=== PATIENT | female | born 1930 | race Caucasian/White ===

== ENCOUNTER → 2016-06-20 | Outpatient (CLI) | payer MEDICARE, BC ==
[2015-10-02 17:15] VITALS: BP 116/47
[~2016-06-20] MED LIST: ACET325T21 PO; ACET325T9 PO; AMLO5TAB2 PO; ASPI81TA9 PO; CALC-104 PO; CALC-304 PO; CALC625T20 PO; CIPR250T30 PO; CIPR500T PO; CITA20TA5 PO; CLON1PAT TD; CRAN200C PO; GABA-585 PO; HYDR-971 PO; LORA0.5T PO; LOSA50TA6 PO; LOVA40TA2 PO; NAPR220C PO; OXYB5TAB7 PO; PROM25SU2 RC; RANI150C PO; TRIM100T PO; [UNRECOGNIZED DRUG - CODE] PO
--- NOTE | 2016-06-20 16:42 | KCIC ---
EXAM: Bilateral digital screening mammogram. HISTORY: 86-year-old female presents for screening mammography. COMPARISON: 05/28/2015 and 05/19/2014 TECHNIQUE: Full field digital craniocaudal and mediolateral oblique views of both breasts are obtained. Computer-aided detection is applied. FINDINGS: Breast parenchymal composition: Level B - Scattered fibroglandular densities. There is no new suspicious mass, calcification or architectural distortion within either breast. There are few benign calcifications bilaterally. There is a stable small circumscribed nodule within the right breast, likely a cyst. IMPRESSION: BI-RADS Category 2: Benign findings. Annual mammography is recommended. This study was interpreted with the benefit of Computerized Aided Detection (CAD). Mammography is not 100% sensitive in detecting breast cancer. Therefore, a self breast exam and a clinical breast exam are very important. A negative mammogram does not negate a clinically suspicious finding and should not result in a delay in biopsying a clinically suspicious abnormality. The patient information was entered into the reminder system with a target for her next mammogram. Electronically signed by: Rut Gutierrez (Jun 20, 2016 16:41:05)
== END | disposition home or self-care (01) ==
LOC: KCIC MAMMO 15:57
PROVIDERS: ATTEND Family Medicine
DX: Z12.31 Encounter for screening mammogram for malignant neoplasm of breast (principal)
CPT/HCPCS: G0202; 77067

== ENCOUNTER → 2016-12-05 | Outpatient (CLI) | payer MEDICARE, BC, OTHER ==
[2015-10-02 17:15] VITALS: BP 116/47
[~2016-12-05] MED LIST changes: +ASPI-612 PO; -ASPI81TA9 PO; -CRAN200C PO; +CRAN200C2 PO; -TRIM100T PO; +TRIM100T13 PO
--- NOTE | 2016-12-05 14:29 | KCIC ---
INDICATION: Bilateral bruits. TECHNIQUE: Grayscale, color-flow, and spectral waveform analysis was performed. Measurements follow NASCET methodology. No comparison is available. FINDINGS: There is plaquing at the carotid bulbs, without turbulent flow or high-grade stenosis, greater on the right. Antegrade flow is noted in the vertebral arteries. Right common carotid artery peak systolic velocity is 101 cm/s. Right internal carotid artery peak systolic velocity is 95 cm/s with an end-diastolic velocity of 21 cm/s. ICA/CCA ratio is less than 1. Left common carotid artery peak systolic velocity is 101 cm/s. Left internal carotid artery peak systolic velocity is 89 cm/s with end-diastolic velocity of 16 cm/s. Ratio is less than 1. IMPRESSION: Plaquing in the carotid bulbs, without a hemodynamically significant stenosis. Electronically signed by: Albaro Jackson MD (12/05/2016 2:25 PM) [id number]
== END | disposition home or self-care (01) ==
LOC: KCIC US 13:16
PROVIDERS: ATTEND Family Medicine
DX: R09.89 Other specified symptoms and signs involving the circulatory and respiratory systems (principal)
CPT/HCPCS: 93880

== ENCOUNTER → 2017-07-29 | Outpatient (CLI) | payer MEDICARE, OTHER | END | disposition home or self-care (01) | LOC: KCIC MAMMO 15:36 | DX: Z12.31 Encounter for screening mammogram for malignant neoplasm of breast (principal) | CPT/HCPCS: 77067 ==